=== PATIENT | male | born 1970 | race Caucasian/White ===

== ENCOUNTER 2021-08-18 19:27 | Emergency (ER) | payer OTHER ==
[~2021-08-18] VITALS: Ht 208.3 cm; Wt 135.0 kg
--- NOTE | 2021-08-18 19:30 | PHYS DOC ---
Adult General HPI HPI Patient is a 51-year-old male who presents with a chief complaint of back pain over the last couple of days. States he has had chronic back pain off and on over his whole life due to his height. States he did start a new job on Monday moving relatively light boxes and twisting motions. States that that is the only thing he can think of that may have exacerbated it. Denies any recent travels, traumas, illnesses, fevers, chest pain, shortness of breath, abdominal pain, nausea, vomiting. States he is making urine and stool normally for him. States he is able to sit, stand and walk without issue. Denies any numbness/weakness/tingling. Review of Systems Review of Systems Review of systems otherwise unremarkable except noted in HPI Physical Exam Physical Exam Constitutional: Well developed, well nourished, no acute distress, non-toxic appearance. [] HENT: Normocephalic, atraumatic, bilateral external ears normal, oropharynx moist, no oral exudates, nose normal. [] Eyes: PERRLA, EOMI, conjunctiva normal, no discharge. [] Neck: Normal range of motion, no tenderness, supple, no stridor. [] Cardiovascular:Heart rate regular rhythm, no murmur [] Lungs & Thorax: Bilateral breath sounds clear to auscultation [] Abdomen: Bowel sounds normal, soft, no tenderness, no masses, no pulsatile masses. [] Skin: Warm, dry, no erythema, no rash. [] Back: No midline tenderness throughout spine or step-offs or changes in range of motion, probable left lumbar paraspinal muscle spasm Extremities: No tenderness, no cyanosis, no clubbing, ROM intact, no edema. [] Neurologic: Alert and oriented X 3, normal motor function, normal sensory function, able to sit, stand and walk without issue, no focal deficits noted. [] Psychologic: Affect normal, judgement normal, mood normal. [] EKG EKG [] Radiology/Procedures Radiology/Procedures [] Heart Score C/O Chest Pain: No Risk Factors: Risk Factors: DM, Current or recent (<one month) smoker, HTN, HLP, family history of CAD, obesity. Risk Scores: Risk Factors: DM, Current or recent (<one month) smoker, HTN, HLP, family history of CAD, obesity. Course & Med Decision Making Course & Med Decision Making Patient is a 51-year-old male who presents with back pain Vital signs not concerning. Physical exam noted above Given medicines for pain. Given muscle relaxant. Discussed symptom control at home. Advised to follow-up in 1 with primary care physician update on ED visit Gave return precautions to the ED. Dragon Disclaimer Dragon Disclaimer This electronic medical record was generated, in whole or in part, using a voice recognition dictation system. Departure Departure: Impression: Primary Impression: Low back pain Disposition: HOME / SELF CARE / HOMELESS Condition: GOOD Referrals: NON,STAFF (PCP) ANTONY DAVIDSON MD Patient Instructions: Back Pain, Adult Additional Instructions: Thank you for coming into the emergency department tonight and allowing us to take care of you. Please read the attached information carefully to go over things we discussed. Please continue a regimen of 1000 mg of Tylenol every 8 hours, 800 mg of ibuprofen every 8 hours, 50 mg of Benadryl every 6 hours and ice. You can take these as long as you are not allergic and can tolerate. Please take your muscle relaxers every 12 hours as needed. Please follow-up in the morning with your primary care physician update on your ED visit and set up a follow-up to discuss need for further evaluation and treatment such as an MRI. Please come back with new or concerning symptoms as discussed DIOGENES TAMEZ MD Aug 18, 2021 19:30
[2021-08-18 19:46] VITALS: BP 139/79
[2021-08-18] MEDS ORDERED: ACETAMINOPHEN 500 MG TABLET PO ONE (20:00)
[2021-08-18] MEDS ORDERED: CYCLOBENZAPRINE 10MG 4TABLET STARTPACK PO ONE (20:00)
[2021-08-18] MEDS ORDERED: KETOROLAC 30 MG/ML VIAL. IM ONE (20:15)
== END 2021-08-18 20:30 | disposition home or self-care (01) ==
LOC: ER 19:27
DX: M54.59 Other low back pain (principal); G89.29 Other chronic pain
CPT/HCPCS: 96372; 99283; J1885